=== PATIENT | male | born 1940 | race Caucasian/White ===

== ENCOUNTER 2016-07-10 02:00 | Emergency (ER) | payer MEDICAID, SELFPAY ==
[2016-07-10 03:00] LABS: #Basophils 0.1 thou/uL (0.0-0.2); #Eosinphils 0.1 thou/uL (0.0-0.7); #Lymphocytes 1.1 thou/uL (1.20-3.40); #Monocytes 0.7 thou/uL (0.11-0.59); #Neutrophils 4.2 thou/uL (1.40-6.50); %Eosinophils 1.3 % (0.0-10.0); %Monocytes 11.1 % (0.0-10.0); %Neutrophils 68.6 % (42.0-75.0); Hemoglobin 13.9 g/dL (14.0-18.0); Mean Corpuscular HGB CONC 32.5 g/dL (32.0-36.0); Mean Corpuscular Hemoglobin 30.6 pg (27.0-31.0); Mean Corpuscular Volume 94.3 fl (80.0-94.0); Platelet Count 206 thou/uL (130-400); Red Blood Cell (RBC) Count 4.55 mill/uL (4.70-6.10); White Blood Cell (WBC) Count 6.1 thou/uL (4.8-10.8)
[2016-07-10 03:10] LABS: ALT (SGPT) 36 U/L (0-55); AST (SGOT) 58 U/L (5-34); Alkaline Phosphatase 62 U/L (40-150); Anion Gap 18 mmol/L (10-20); BUN (Urea Nitrogen) 31 mg/dL (8.4-25.7); Bilirubin, Total 0.9 mg/dL (0.2-1.2); CK (CPK) 311 U/L (30-200); Calc. Creatinine Clearance 0 mL/min (70-130); Calcium 9.1 mg/dL (7.8-10.44); Carbon Dioxide 16 mmol/L (23-31); Chloride 106 mmol/L (98-107); Estimated GFR-MDRD 69; Globulin 2.6 g/dL (2.4-3.5); Glucose 118 mg/dL (83-110); Potassium 4.8 mmol/L (3.5-5.1); Protein, Total 6.6 g/dL (5.8-8.1); Sodium 135 mmol/L (136-145)
[2016-07-10] MEDS ORDERED: Furosemide 40 MG/4 ML VIAL ONE (03:20)
[2016-07-10 03:23] LABS: INR-International Normal Ratio 1.3; PTT 36.2 SEC (22.9-36.1)
[2016-07-10 03:27] LABS: Troponin I 0.034 ng/mL (< 0.028)
[2016-07-10 03:33] LABS: CKMB 20.6 ng/mL (0-6.6)
[2016-07-10 04:02] LABS: Hemoglobin A1c 5.8 % (4.0-6.0)
[2016-07-10] MEDS ORDERED: Aspirin 325 MG TAB ONE (04:04)
[2016-07-10 04:13] LABS: Bilirubin Negative (Negative); Blood, Urine Trace (Negative); Clarity Clear (Clear); Glucose, Urine (Dipstick) Negative (Negative); Leukocyte Negative (Negative); Nitrite Negative (Negative); Protein, Urine (Dipstick) Negative (Neg-Trace); Specific Gravity, Urine 1.015 (1.005-1.030); Urobilinogen 0.2 mg/dL (0.2-1.0); pH, Urine 5.5 (5.0-9.0)
[2016-07-10 04:15] LABS: RBC/HPF 0-3 HPF (0-3)
[2016-07-10 04:16] LABS: Bacteria/HPF Rare-Few HPF (None Seen); Squamous Epithelial 0-3 HPF (0-3); WBC/HPF 0-3 HPF (0-3)
--- NOTE | 2016-07-10 07:51 | RAD ---
SINGLE VIEW OF CHEST: Date: 07/10/16 COMPARISON: None. HISTORY: Progressive dyspnea on exertion and shortness of breath. FINDINGS: Single view of the chest shows an enlarged cardiomediastinal silhouette. There may be small bilatera l pleural effusions. There is no evidence of consolidation or mass. IMPRESSION: 1. Cardiomegaly. 2. Possible small bilateral pleural effusions. POS: [facility]
== END 2016-07-10 05:56 | disposition left against medical advice (07) ==
LOC: MADERS 02:00
DX: I50.9 Heart failure, unspecified (principal); I25.10 Atherosclerotic heart disease of native coronary artery without angina pectoris
CPT/HCPCS: 36415; 71010; 80053; 81003; 81015; 82550; 82553; 83036; 83880; 84484; 85025; 85610; 85730; 86140; 87040; 87086; 87430; 93005; 94760; 96374; J1940